=== PATIENT | male | born 1935 | race Hispanic/Latino ===

== ENCOUNTER → 2018-11-06 | Outpatient (CLI) | payer OTHER ==
[~2018-11-06] MED LIST: AMLODIPINE BESY10 MG PO; ASPIR 8181 MG PO; ASPIR-LOW81 MG PO; DIOVAN160 MG PO; HYDROCODON-ACE1 EA11 PO; METOCLOPRAMIDE10 MG PO; OMEPRAZOLE40 MG PO; TOPROL XL25 MG PO; VITAMIN C500 M1 PO; VITAMIN D-32000 UNIT PO
[2018-11-06 08:19] LABS: BLOOD UREA NITROGEN 17 mg/dL (7-26); BUN/CREATININE RATIO 20 (6-25); CREATININE, SERUM 0.85 mg/dL (0.72-1.25); EST GLOMERULAR FILTRATION RATE > 60 ML/MIN (60-)
== END ==
LOC: CT 07:25
PROVIDERS: ATTEND Internal Medicine Cardiovascular Disease
DX: I65.21 Occlusion and stenosis of right carotid artery (principal)
CPT/HCPCS: 36415; 82565; 84520

== ENCOUNTER → 2018-11-14 | Outpatient (CLI) | payer MEDICARE, OTHER ==
[~2018-11-14] MED LIST changes: +HYDROCHLOROTHIA25 MG PO; +IOPAMIDOL 370 MG/ML 200 ML INFUS..BTL INJ ONE; +LISINOPRIL10 MG PO; +MYRBETRIQ50 MG PO; +SIMVASTATIN20 MG PO; +SODIUM CHLORIDE 0.9% 100 ML 100 ML ONE
--- NOTE | 2018-11-14 09:34 | Diagnostic Imaging Report ---
CTA NECK HISTORY: Carotid stenosis COMPARISON: None. TECHNIQUE: CTA of the neck was performed with intravenous iodine based contrast. Coronal, sagittal, 3-D, and oblique maximum intensity projection reformations were created. One or more of the following dose reduction techniques were used: Automated exposure control, adjustment of the mA and/or kV according to patient size, and/or utilization of iterative reconstruction technique. DISCUSSION: If present, any cervical carotid stenosis will be measured as a percentage relative to the jamul artery distal to the stenosis (NASCET). Streak artifacts obscure some details. Calcified atherosclerosis is seen in the aortic arch and proximal great vessels. Right Carotid: Moderate calcified plaque at the right carotid bulb results in up to 80% focal stenosis in the proximal right internal carotid artery. Left Carotid: Moderate calcified plaque at the left carotid bulb causes up to 70% focal stenosis in the proximal left internal carotid artery. Right vertebral artery: Focal calcified plaque at the right vertebral artery ostium does not cause significant stenosis. Otherwise, patent and without abnormality. Left vertebral artery: Focal calcified plaque at the left vertebral artery ostium does not cause significant stenosis. Otherwise, patent and without abnormality. The intracranial arterial vasculature is partially visualized. Mild bilateral intradural vertebral artery calcified plaque is present without significant stenosis. Bilateral carotid siphon calcifications are also present without significant stenosis. Additional findings: Mild generalized cerebral volume loss is partially visualized. Mild periventricular white matter hypodensities are likely chronic microvascular ischemic changes. Bilateral ocular lens replacement. Median sternotomy changes are present. Small coarse calcification is seen in the left thyroid lobe. Mild bilateral anterior ethmoid air cell and severe left maxillary sinus mucosal thickening is present. There are advanced degenerative changes throughout the spine. The left mastoid air cells are sclerotic IMPRESSION: 1. Up to 80% focal stenosis in the proximal right internal carotid artery due to calcified plaque. 2. Up to 70% focal stenosis in the proximal left internal carotid artery due to calcified plaque. 3. Minimal bilateral vertebral artery ostium calcified plaque without significant stenosis. 4. No other cervical CTA abnormalities. Signed by: Dr. Arnoldo Lerma M.D. on 11/14/2018 9:31 AM
== END ==
LOC: CT 06:52
PROVIDERS: ATTEND Internal Medicine Cardiovascular Disease
DX: I65.21 Occlusion and stenosis of right carotid artery (principal)
CPT/HCPCS: 70498; Q9967

== ENCOUNTER 2018-11-24 09:18 | Inpatient (IN) | payer OTHER ==
[2018-11-21 11:36] LABS: BASOPHILS # (AUTO) 0.1 (0.0-0.1); BASOPHILS % 0.7 % (0.0-1.0); EOSINOPHILS # (AUTO) 0.1 (0.0-0.4); EOSINOPHILS % 0.9 % (0.0-6.0); HEMATOCRIT 43.5 % (38.2-49.6); HEMOGLOBIN 14.4 g/dL (14.0-18.0); LYMPHOCYTES # (AUTO) 1.7 (1.0-3.2); LYMPHOCYTES % 19.2 % (18.0-39.1); MEAN CORPUSCULAR HEMOGLOBIN 27.5 pg (28-32); MEAN CORPUSCULAR HGB CONC 33.1 g/dL (31-35); MEAN CORPUSCULAR VOLUME 83.2 fL (81-99); MONOCYTES # (AUTO) 0.9 (0.2-0.8); NEUTROPHILS # (AUTO) 6.2 (2.1-6.9); NEUTROPHILS % 68.8 % (38.7-80.0); PLATELET COUNT 247 x10e3/uL (140-360); RED BLOOD COUNT 5.23 x10e6/uL (4.3-5.7); RED CELL DISTRIBUTION WIDTH 13.2 % (11.7-14.4)
[2018-11-21 11:52] LABS: INR 0.94; PROTHROMBIN TIME 13.1 seconds (11.9-14.5)
[2018-11-21 11:53] LABS: PARTIAL THROMBOPLASTIN TIME 30.6 seconds (23.8-35.5)
[2018-11-21 12:00] LABS: ALANINE AMINOTRANSFERASE 16 IU/L (0-55); ALBUMIN 4.1 g/dL (3.5-5.0); ALBUMIN/GLOBULIN RATIO 1.1 (0.8-2.0); ALKALINE PHOSPHATASE 74 IU/L (40-150); ANION GAP 12.2 mmol/L (8-16); BLOOD UREA NITROGEN 13 mg/dL (7-26); BUN/CREATININE RATIO 16 (6-25); CALCIUM 10.1 mg/dL (8.4-10.2); CARBON DIOXIDE 28 mmol/L (22-29); CHLORIDE 95 mmol/L (98-107); CREATININE, SERUM 0.82 mg/dL (0.72-1.25); EST GLOMERULAR FILTRATION RATE > 60 ML/MIN (60-); GLUCOSE 92 mg/dL (74-118); POTASSIUM 4.2 mmol/L (3.5-5.1); SODIUM 131 mmol/L (136-145)
--- NOTE | 2018-11-21 12:13 | Diagnostic Imaging Report ---
EXAMINATION: CHEST 2 VIEWS INDICATION: Pre-operative COMPARISON: None FINDINGS: LINES/TUBES:None LUNGS:The lungs are well-inflated. No focal consolidation or pulmonary edema. PLEURA:No pleural effusion or pneumothorax. MEDIASTINUM:The cardiomediastinal silhouette appears normal in size and shape. Atherosclerotic calcifications of the thoracic aorta. BONES/SOFT TISSUES:No acute osseous injury. Sternotomy wires intact ABDOMEN:No free air under the diaphragm. IMPRESSION: No focal pneumonia or pulmonary edema. Signed by: Katina Valenzuela MD on 11/21/2018 12:09 PM
[2018-11-24] VITALS (11 sets, daily range): BP systolic 147–185; BP diastolic 44–70
[~2018-11-24] VITALS: Ht 172.7 cm; Wt 75.4 kg
[~2018-11-24 09:18] MED LIST changes: -IOPAMIDOL 370 MG/ML 200 ML INFUS..BTL INJ ONE; -SODIUM CHLORIDE 0.9% 100 ML 100 ML ONE
--- OUTSIDE RECORDS SUMMARY | 2018-11-24 09:20 | XMS REPORT ---
Author [facility] Address Unknown Phone Unavailable Care Team Providers Care Hr Administrator Name Role Phone LILLI TOSCANO Unavailable Unavailable KYRIE GALVEZ Unavailable Unavailable Problems This patient has no known problems. Allergies, Adverse Reactions, Alerts This patient has no known allergies or adverse reactions. Medications This patient has no known medications. Results Test Description Test Time Test Comments Text Results Atomic Results Result Comments CHEST 2 VIEWS 2018-11-21 12:08:00 [place] [address] Patient Name: RAYA CLARK MR #: [id number] : 1935 Age/Sex: 83/M Req #: [id number] [facility] Physician: Ordered by: LILLI TOSCANO MD Report #: [id number] Location: OR Room/Bed: Procedure: [id number] DX/CHEST 2 VIEWS Exam Date: 11/21/18 Exam Time: 1150 REPORT STATUS: Signed EXAMINATION: CHEST 2 VIEWS INDICATION: Pre-operative COMPARISON: None FINDINGS: LINES/TUBES:None LUNGS:The lungs are well-inflated. No focal consolidation or pulmonary edema. PLEURA:No pleural effusion or pneumothorax. MEDIASTINUM:The cardiomediastinal silhouette appears normal in size and shape. Atherosclerotic calcifications of the thoracic aorta. BONES/SOFT TISSUES:No acute osseous injury. Sternotomy wires intact ABDOMEN:No free air under the diaphragm. IMPRESSION: No focal pneumonia or pulmonary edema. Signed by: Guerrero Sethi MD on 11/21/2018 12:09 PM Dictated By: GUERRERO SETHI MD 08 Transcribed By: ERENDIRA on 11/21/181208 COPY TO: LILLI TOSCANO MD CTA NECK 2018-11-14 09:18:00 [place] [address] Patient Name: RAYA CLARK MR #: [id number] : 1935 Age/Sex: 83/M Req #: [id number] Adm Physician: Ordered by: KYRIE GALVEZ MD Report #: [id number] Location: CT Room/Bed: Procedure: [id number] CT/CTA NECK Exam Date: 11/14/18 Exam Time: 0745 REPORT STATUS: Signed CTA NECK HISTORY: Carotid stenosis COMPARISON: None. TECHNIQUE: CTA of the neck was performed with intravenous iodine based contrast. Coronal, sagittal, 3-D, and oblique maximum intensity projection reformations were created. One or more of the following dose reduction techniques were used: Automated exposure control, adjustment of the mA and/or kV according to patient size, and/or utilization of iterative reconstruction technique. DISCUSSION: If present, any cervical carotid stenosis will be measured as a percentage relative to the nenana artery distal to the stenosis (NASCET). Streak artifacts obscure some details. Calcified atherosclerosis is seen in the aortic arch and proximal great vessels. Right Carotid: Moderate calcified plaque at the right carotid bulb results in up to 80% focal stenosis in the proximal right internal carotid artery. Left Carotid: Moderate calcified plaque at the left carotid bulb causes up to 70% focal stenosis in the proximal left internal carotid artery. Right vertebral artery: Focal calcified plaque at the right vertebral artery ostium does not cause significant stenosis. Otherwise, patent and without abnormality. Left vertebral artery: Focal calcified plaque at the left vertebral artery ostium does not cause significant stenosis. Otherwise, patent and without abnormality. The intracranial arterial vasculature is partially visualized. Mild bilateral intradural vertebral artery calcified plaque is present without significant stenosis. Bilateral carotid siphon calcifications are also present without significant stenosis. Additional findings: Mild generalized cerebral volume loss is partially visualized. Mild periventricular white matter hypodensities are likely chronic microvascular ischemic changes. Bilateral ocular lens replacement. Median sternotomy changes are present. Small coarse calcification is seen in the left thyroid lobe. Mild bilateral anterior ethmoid air cell and severe left maxillary sinus mucosal thickening is present. There are advanced degenerative changes throughout the spine. The left mastoid air cells are sclerotic IMPRESSION: 1. Up to 80% focal stenosis in the proximal right internal carotid artery due to calcified plaque. 2. Up to 70% focal stenosis in the proximal left internal carotid artery due to calcified plaque. 3. Minimal bilateral vertebral artery ostium calcified plaque without significant stenosis. 4. No other cervical CTA abnormalities. Signed by: Dr. Arnoldo Lerma M.D. on 11/14/2018 9:31 AM Dictated By: ARNOLDO LERMA MD 0 Transcribed By: ERENDIRA on 11/14/18930 COPY TO: KYRIE GALVEZ MD
[2018-11-24] MEDS ORDERED: HEPARIN SOD/SOD CHLORIDE 1,000 ML ONE (12:33)
[2018-11-24] MEDS ORDERED: PROTAMINE SULFATE 10 MG/ML 5 ML VIAL ONE (12:55)
[2018-11-24] MEDS ORDERED: HEPARIN SOD (PORCINE) 1000 UNIT/ML 30ML ONE (12:55)
[2018-11-24] MEDS ORDERED: MUPIROCIN 2% OINT 22 GM TUBE ONE (12:55)
[2018-11-24] MEDS ORDERED: LIDOCAINE HCL 1% 2 ML AMP ONE (12:55)
[2018-11-24] MEDS ORDERED: THROMBIN FOR SOLN 5,000 UNIT VIAL ONE (12:56)
[2018-11-24] MEDS ORDERED: SODIUM CHLORIDE 0.9% 500ML 500 ML ONE (12:56)
[2018-11-24] MEDS ORDERED: NICARDIPINE HCL SOLN 10 ML ONE (13:00)
[2018-11-24] MEDS ORDERED: HYDROMORPHONE 1MG/1ML INJ ONE (15:46)
[2018-11-24] MEDS ORDERED: LABETALOL HCL 20 ML ONE (15:46)
[2018-11-24] MEDS ORDERED: MORPHINE SULFATE 2 MG/ML SYR 1ML IV PRN (16:00)
[2018-11-24] MEDS ORDERED: FENTANYL CITRATE/PF 100MCG/2 ML INJ ONE ×2 (16:09→17:57)
[2018-11-24 16:17] LABS: BASOPHILS # (AUTO) 0.1 (0.0-0.1); BASOPHILS % 0.3 % (0.0-1.0); EOSINOPHILS % 0.2 % (0.0-6.0); HEMATOCRIT 39.9 % (38.2-49.6); HEMOGLOBIN 13.5 g/dL (14.0-18.0); LYMPHOCYTES # (AUTO) 1.1 (1.0-3.2); LYMPHOCYTES % 7.4 % (18.0-39.1); MEAN CORPUSCULAR HGB CONC 33.8 g/dL (31-35); MEAN CORPUSCULAR VOLUME 82.8 fL (81-99); MONOCYTES # (AUTO) 0.5 (0.2-0.8); MONOCYTES % 3.1 % (4.4-11.3); NEUTROPHILS # (AUTO) 12.7 (2.1-6.9); NEUTROPHILS % 88.6 % (38.7-80.0); PLATELET COUNT 198 x10e3/uL (140-360); RED BLOOD COUNT 4.82 x10e6/uL (4.3-5.7); RED CELL DISTRIBUTION WIDTH 13.4 % (11.7-14.4)
[2018-11-24 16:31] LABS: ANION GAP 11.1 mmol/L (8-16); POTASSIUM 4.1 mmol/L (3.5-5.1)
[2018-11-24] MEDS ORDERED: HYDRALAZINE HCL 20 MG/ML VIAL IV PRN (17:45)
[2018-11-24] MEDS ORDERED: MIDAZOLAM HCL 2 MG/2 ML VIAL ONE (17:57)
[2018-11-24] MEDS ORDERED: GLYCOPYRROLATE INJ 1MG/ 5 ML SYR ONE (18:26)
[2018-11-24] MEDS ORDERED: ONDANSETRON HCL INJ 2MG/ML 2ML 2 MG/ML VIAL ONE (18:26)
[2018-11-24] MEDS ORDERED: EPHEDRINE SULFATE INJ 50 MG/10 ML SYR ONE (18:26)
[2018-11-24] MEDS ORDERED: PROPOFOL IV EMULSION 10 MG/ML 20 ML VIAL ONE (18:26)
[2018-11-24] MEDS ORDERED: ROCURONIUM BROMIDE 10 MG/ML 5ML VIAL ONE (18:26)
[2018-11-24] MEDS ORDERED: DEXAMETHASONE SOD PHOS INJ 4 MG/ML VIAL ONE (18:26)
[2018-11-24] MEDS ORDERED: SEVOFLURANE INHAL SOLN 250 ML PEN BTL ONE (18:26)
[2018-11-24] MEDS ORDERED: LIDOCAINE HCL 2% LOCAL INJ 5 ML SDV VIAL INJ ONE (18:26)
[2018-11-24] MEDS ORDERED: NEOSTIGMINE 5 MG/5ML SYR ONE (18:26)
[2018-11-24] MEDS ORDERED: CEFAZOLIN SOD 1 GM VIAL ONE (18:26)
[2018-11-24] MEDS: SODIUM CHLORIDE 0.9% 1000ML 1,000 ML IV SCH (18:49)
[2018-11-24] MEDS ORDERED: HYDROCODONE/APAP 5MG-325MG TAB PO PRN ×2 (19:00)
[2018-11-24] MEDS ORDERED: ONDANSETRON HCL 4 MG ORAL DISINTEGRATING TAB PO PRN (19:00)
[2018-11-24] MEDS ORDERED: LABETALOL HCL 5 MG/ML 20ML VIAL IV PRN (19:00)
[2018-11-24] MEDS: SIMVASTATIN 20 MG TAB PO SCH (20:22)
[2018-11-24] MEDS ORDERED: CEFAZOLIN SOD 1 GM/NS 50ML 50 ML IV ONE (21:00)
[2018-11-25] VITALS (14 sets, daily range): BP systolic 129–160; BP diastolic 46–86
--- NOTE | 2018-11-25 00:20 | NUR ---
00:20: Dr. Dori Go called due to pt having urinary retention, bladder scanner showed 750 cc. Order for larson catheter received. 00:40: 16Fr catheter inserted, 800cc urine removed.
[2018-11-25] MEDS: SODIUM CHLORIDE 0.9% 1000ML 1,000 ML IV SCH (02:00)
[2018-11-25 05:14] LABS: BASOPHILS % 0.2 % (0.0-1.0); HEMATOCRIT 38.6 % (38.2-49.6); HEMOGLOBIN 12.9 g/dL (14.0-18.0); LYMPHOCYTES # (AUTO) 0.8 (1.0-3.2); MEAN CORPUSCULAR HEMOGLOBIN 27.4 pg (28-32); MEAN CORPUSCULAR HGB CONC 33.4 g/dL (31-35); MONOCYTES # (AUTO) 1.1 (0.2-0.8); MONOCYTES % 8.2 % (4.4-11.3); NEUTROPHILS % 85.1 % (38.7-80.0); PLATELET COUNT 207 x10e3/uL (140-360); RED BLOOD COUNT 4.71 x10e6/uL (4.3-5.7); RED CELL DISTRIBUTION WIDTH 13.2 % (11.7-14.4)
[2018-11-25 05:25] LABS: ANION GAP 14.2 mmol/L (8-16); BLOOD UREA NITROGEN 13 mg/dL (7-26); BUN/CREATININE RATIO 16 (6-25); CALCIUM 8.7 mg/dL (8.4-10.2); CARBON DIOXIDE 22 mmol/L (22-29); CHLORIDE 102 mmol/L (98-107); CREATININE, SERUM 0.79 mg/dL (0.72-1.25); EST GLOMERULAR FILTRATION RATE > 60 ML/MIN (60-); GLUCOSE 135 mg/dL (74-118); POTASSIUM 4.2 mmol/L (3.5-5.1); SODIUM 134 mmol/L (136-145)
[2018-11-25] MEDS ORDERED: HYDROCHLOROTHIAZIDE 25 MG TAB PO SCH (09:00)
[2018-11-25] MEDS ORDERED: ASPIRIN 81 MG CHEW TAB PO SCH (09:00)
[2018-11-25] MEDS ORDERED: (Mirabegron (Myrbetriq) 50 MG) PO SCH (09:00)
[2018-11-25] MEDS ORDERED: LISINOPRIL 20 MG TAB PO SCH (09:00)
[2018-11-25] MEDS ORDERED: LISINOPRIL 10 MG TAB PO SCH (09:00)
[2018-11-25] MEDS ORDERED: ENOXAPARIN SOD INJ 40 MG/0.4 ML SYR SC SCH (09:00)
[2018-11-25] MEDS ORDERED: TAMSULOSIN HCL 0.4 MG CAP PO SCH (09:00)
[2018-11-25] MEDS ORDERED: METOPROLOL SUCCINATE 25 MG TAB XL PO SCH (09:00)
--- NOTE | 2018-11-25 13:00 | NUR ---
Received patient from the ICU patient alert and oriented x3, verbalizing needs. Cooper to gravity belongings and call light within reach will continue to monitor.
--- NOTE | 2018-11-25 13:24 | NUR ---
PT TRANSFERRED TO ROOM 187 RN TO RESUME CARE
--- NOTE | 2018-11-25 14:20 | NUR ---
Visit made by the Spiritual Care Department Pastoral Visitor, Lita Rhodes. Pt sleeping soundly and no family present. Pastoral Visitor left a card describing availability of composition floor setter and instructions on how to contact a composition floor setter. GAVIN STATON [employer] Equipment Repairer Spiritual Care Department O: [phone] Pager: [phone] ([phone] number calling from)
--- NOTE | 2018-11-25 15:16 | History and Physical ---
REPORT TITLE: Pulmonary Critical Care Consultation BODY AFTER REPORT TITLE: CHIEF COMPLAINT: Hypertension and carotid endarterectomy. HISTORY OF PRESENT ILLNESS: The patient has a history of severe carotid artery stenosis. The patient went for a right carotid endarterectomy yesterday. The patient tolerated the procedure well. The patient has had a Dacron patch placed and a shunt used. There were no intraoperative complications. Postoperatively, the patient had some elevated blood pressure and required some p.r.n. hydralazine. There are no focal neurological complaints this morning. The patient did have some trouble urinating and required a Cooper catheter. PAST SURGICAL HISTORY: 1. Status post coronary artery bypass grafting. 2. Status post carotid endarterectomy as noted above. PAST MEDICAL HISTORY: 1. Hypertension. 2. Carotid artery stenosis. 3. Coronary artery disease. SOCIAL HISTORY: Very recently quit smoking tobacco. No alcohol use. ALLERGIES: NO KNOWN DRUG ALLERGIES. FAMILY HISTORY: Significant for coronary artery disease. REVIEW OF SYSTEMS: The patient is afebrile. The patient does not complain of headache. There is no neck pain. There is no chest pain. No difficulty breathing. No nausea or vomiting. No leg edema. PHYSICAL EXAMINATION: VITAL SIGNS: The patient is afebrile. The blood pressure is improved to 141/56 and the saturation is 100% on 2 L. The pulse is 79. HEENT: Shows no facial swelling or erythema. LYMPHATIC: Shows no submandibular, cervical, or supraclavicular adenopathy. CARDIAC: Reveals a regular rate and rhythm with normal S1, S2. There are no murmurs or rubs heard. LUNGS: Auscultation of lungs reveals clear breath sounds bilaterally. There is no wheezing. ABDOMEN: Soft, nontender. There is no rebound or guarding. EXTREMITIES: Show no leg edema or calf tenderness. There is no cyanosis or clubbing. SKIN: Shows no rashes. NEUROLOGICAL: Shows no focal abnormalities. LABORATORY DATA: The white blood cell count is 12.9 and hemoglobin is 12.9. The platelet count is 207. BUN to creatinine ratio is normal. The other electrolytes are within normal limits. RADIOGRAPHIC DATA: Chest x-ray shows no acute disease. IMPRESSION: 1. Acute urinary retention. 2. Hypertension. 3. Hyponatremia. 4. Recent carotid endarterectomy. PLAN: 1. Suspect urinary retention may be related to anesthesia and other medications. Begin Flomax and attempt a trial of catheter removal. 2. Continue to monitor and control blood pressure. 3. Out of bed as tolerated. MD CARTER Chopra/PRAVIN /[id number]
--- NOTE | 2018-11-25 15:36 | Consultation ---
DATE OF CONSULTATION: Cardiology Consultation CHIEF COMPLAINT: The patient is an 83-year-old with carotid endarterectomy. HISTORY OF PRESENT ILLNESS: The patient is an 83-year-old who had a carotid endarterectomy done for right carotid artery stenosis yesterday. The patient is recovering well today with no chest pain, no shortness of breath, and no concerns. PAST MEDICAL HISTORY: Significant for: 1. Previous coronary artery bypass grafting. 2. Hypertension. 3. Diabetes mellitus. 4. Hyperlipidemia. 5. Chronic kidney disease. SOCIAL HISTORY: The patient is a former smoker. The patient lives at home. The patient does not drink. FAMILY HISTORY: There is a known family history of coronary artery disease. PHYSICAL EXAMINATION: GENERAL: The patient is a well-developed, well-nourished male, in no distress. VITAL SIGNS: Include a temperature of 98.8, blood pressure of 140/80, pulse of 60. HEAD, EARS, EYES, NOSE, AND THROAT: The patient had a recent right carotid endarterectomy. CHEST: Clear to auscultation and percussion. CARDIAC: Demonstrated normal S1 and S2 with a short 2/6 systolic murmur. ABDOMEN: Demonstrated good bowel sounds. No tenderness and no masses. EXTREMITIES: No clubbing, no cyanosis, and no edema. NEUROLOGIC: The patient was alert and oriented x3. Cranial nerves II through XII are intact. Motor strength was +5/+5 in all limbs. DIAGNOSTIC DATA: The patient's EKG demonstrated a sinus bradycardia. IMPRESSION: The patient is an 83-year-old with a right carotid endarterectomy done yesterday, appears to be recovering well without any active cardiac issues. The patient had no evidence of cardiac ischemia after surgery. Andrey Go MD DSH/MODL /[id number] cc: Rg Arora MD
[2018-11-25] MEDS: SIMVASTATIN 20 MG TAB PO SCH (20:53)
[2018-11-26 03:00] VITALS: BP 107/52
[2018-11-26 07:39] VITALS: BP 105/55
--- NOTE | 2018-11-26 09:17 | NUR ---
REVIEWED DC INSTRUCTIONS WITH PATIENT AND DAUGHTER. DC STABLE
--- NOTE | 2018-11-26 19:29 | Discharge Summary ---
DISCHARGE DIAGNOSES: 1. Carotid endarterectomy. 2. Hypertension. 3. Acute urinary retention. 4. Prostatic hypertrophy. CONSULTING PHYSICIANS: 1. Dr. Andrey Go of Cardiology. 2. Dr. Rg Arora of Cardiothoracic Surgery. PROCEDURES: Carotid endarterectomy. HISTORY OF PRESENT ILLNESS: The patient is an 83-year-old man. He had severe carotid artery stenosis. He came to the hospital for right carotid endarterectomy. HOSPITAL COURSE: The patient tolerated the procedure well. A shunt was used. He had a Dacron graft placed. There is minimal blood loss. No complications. Postoperatively, the patient had elevated blood pressure and required additional hydralazine. He also had difficulty urinating and a Cooper catheter had to be re-inserted. He was restarted on his Flomax and the catheter was subsequently removed. DISPOSITION: The patient will be discharged home. FOLLOWUP: He will follow up with Dr. Arora in 2 weeks. MD CARTER Chopra/PRAVIN /[id number]
--- NOTE | 2018-11-26 22:51 | Operative Report ---
DATE OF PROCEDURE: 11/24/2018 SURGEON: Rg Arora MD UNDERWRITING CLERK: Casey. PREOPERATIVE DIAGNOSIS: Right carotid stenosis. POSTOPERATIVE DIAGNOSIS: Right carotid stenosis. TITLE OF OPERATION: Right carotid endarterectomy. DESCRIPTION OF OPERATION: After the satisfactory accomplishment of general anesthesia, the patient's right neck was prepped and draped in sterile fashion. A standard right carotid incision was made and carried down through the subcutaneous tissues to expose the right common carotid artery. The vessel was dissected free from the surrounding tissues and looped with a vessel loop. The dissection was carried distally to expose the internal carotid artery and the external carotid artery and its branches. Systemic heparin was given for the purpose of anticoagulation through a central vein cannula. Care was taken to identify and preserve all nerve structures in the region. The common external and internal carotid arteries were briefly cross clamped. A long incision was made in the common carotid artery and carried distally through the bifurcation and well up into the internal carotid artery. An indwelling shunt was placed in the common carotid artery proximally and the internal carotid artery distally, thereby re-establishing blood flow to the right side of the brain for the remainder of the case. A severely obstructive atherosclerotic plaque was identified. The plaque was removed using standard endarterectomy techniques. Following this, the surface of the vessel was smoothed and all loose debris was carefully removed. Heparinized saline flushes were routinely employed. A previously constructed Dacron patch was brought into the operative field and used to close the arteriotomy site. Running 7-0 Prolene was used for this patch closure. Prior to completing the closure, the shunt was removed and the vessel was flushed free from all air and debris. Once the sutures were tied, excellent pulses were felt within the patch and within the distal vessel. Protamine was given to counteract the effects of the heparin and the wound was thoroughly irrigated with antibiotic solution. The wound was then closed in layers with interrupted 2-0 Vicryl for the deep tissues and Monocryl subcuticular stitches for the skin. The patient was awakened in the operating room with a normal neurologic exam and was then returned to the intensive care unit in good condition. MD SERGIO Antonio/MODL /[id number]
== END 2018-11-26 09:21 | disposition home or self-care (01) | DRG 38 ==
LOC: OR 09:18 → ICU 17:00 → IMCU 11-25 13:18
PROVIDERS: ADMIT Internal Medicine Critical Care Medicine; ATTEND Internal Medicine Critical Care Medicine
PROC: 03CH0ZZ Extirpation of Matter from Right Common Carotid Artery, Open Approach (ICD-10-PCS; principal; 2018-11-26)
DX: I65.21 Occlusion and stenosis of right carotid artery (principal); N39.0 Urinary tract infection, site not specified; E87.1 Hypo-osmolality and hyponatremia; I10 Essential (primary) hypertension
CPT/HCPCS: 36415; 71046; 80048; 80051; 80053; 85025; 85610; 85730; 86850; 86900; 86920; 88304; 88311; 93005; C1768; J0360; J0690; J1100; J1170; J1644; J1650; J2001; J2250; J2270; J2405; J2720; J3010; J7040